=== PATIENT | female | born 1940 | race Caucasian/White ===

== ENCOUNTER → 2020-02-22 14:47 | Outpatient (CLI) | payer OTHER, SELFPAY ==
[2020-02-22 15:35] LABS: Bacteria Urine None Seen; RBC Urine None Seen (0-5/HPF); WBC Urine None Seen (0-5/HPF)
[2020-02-22 16:11] LABS: Appearance Urine UA CLEAR; Bilirubin Urine UA NEGATIVE (NEGATIVE); Color Urine UA YELLOW; Glucose Urine UA NEGATIVE (Negative); Ketones Urine UA NEGATIVE (NEGATIVE); Leukocyte Esterase Urine UA NEGATIVE (NEGATIVE); Nitrite Urine UA NEGATIVE (Negative); Occult Blood Urine UA NEGATIVE (Negative); Protein Urine UA 2+ (Negative); Urobilinogen Urine UA 0.2 E.U./dL (0.2)
[2020-02-22 16:12] LABS: Add Manual Diff / Slide Review NO; Basophils Absolute Auto 0 /uL (0-100); Basophils Percent Auto 0.6 % (0-2); Eosinophils Absolute Auto 100 /uL (0-450); Eosinophils Percent Auto 1.3 % (2-4); Hematocrit 33.4 % (36-46); Hemoglobin 11.1 g/dL (12.0-16.0); Lymphocytes Absolute Auto 1800 /uL (1100-4500); Lymphocytes Percent Auto 25.8 % (25-40); Mean Corpuscular HGB Conc 33.1 % (30-36); Mean Corpuscular Hemoglobin 30.2 PG (26-34); Mean Corpuscular Volume 91.2 fL (80-100); Monocytes Absolute Auto 600 /uL (0-900); Neutrophils Absolute Auto 4400 /uL (1500-7000); Neutrophils Percent Auto 63.3 % (50-75); Platelet Count 321 X10^3/uL (150-400); Red Blood Cell Count 3.67 X10^6/uL (4.0-5.2); Red Cell Distribution Width 15.5 % (11.6-14.8)
[2020-02-22 16:21] LABS: Hemoglobin A1C% w Est Avg Glu 5.3 % (4.0-6.0)
[2020-02-22 16:30] LABS: Culture Indicated Urine Cult Not Indicated; Urine Comments Microscopic Normal
[2020-02-22 16:39] LABS: Erythrocyte Sedimentation Rate 31 MM/HR (0-20)
[2020-02-22 16:52] LABS: Blood Urea Nitrogen 48 mg/dL (7-17); Calcium 9.9 mg/dL (8.4-10.2); Carbon Dioxide 29 mmol/L (22-32); Chloride 98 mmol/L (98-107); Estimated Glomerular Filt Rate 35.9 mL/min (>60); Glucose 112 mg/dL (80-110); HEMOLYSIS < 15 (0-50); Potassium 4.9 mmol/L (3.4-5.1); Sodium 138 mmol/L (137-145)
[2020-02-22 16:53] LABS: C-Reactive Protein Quant < 0.5 mg/dL (<1.0)
== END ==
PROVIDERS: PCP Family Medicine; Referring Provider Orthopaedic Surgery; Visit Provider Orthopaedic Surgery
DX: Z01.818 Encounter for other preprocedural examination (principal); Z01.812 Encounter for preprocedural laboratory examination; R73.9 Hyperglycemia, unspecified; N39.0 Urinary tract infection, site not specified
CPT/HCPCS: 36415; 80048; 81001; 83036; 85025; 85651; 86140; 93005; 93010

== ENCOUNTER → 2020-02-23 10:40 | Outpatient (CLI) | payer OTHER, SELFPAY ==
[2020-02-24 23:14] LABS: COVID19 Sendout Not Detected (Not Detect)
== END ==
PROVIDERS: PCP Family Medicine; Visit Provider Physician Assistant
DX: Z01.818 Encounter for other preprocedural examination (principal)
CPT/HCPCS: 87635

== ENCOUNTER 2020-02-26 15:19 | Observation (INO) | payer OTHER, SELFPAY ==
[2020-02-25] VITALS (12 sets, daily range): BP systolic 152–201; BP diastolic 63–90; PULSE 66–76; RESP 16–25; TEMP 36.4–37; O2SAT 94–99; BMI 16.4
--- NOTE | 2020-02-25 | DI.RAD.S_ITS ---
PROCEDURE: XR HIP W PEL IF DONE LT 2V INDICATIONS: TOTAL LEFT HIP TECHNIQUE: AP pelvis and lateral view of the left hip acquired. COMPARISON: None. FINDINGS: Bones: Patient is status post left hip arthroplasty, with hardware components in expected positions. The hip joint appears congruent. The visualized bony structures appear intact. Soft tissues: Overlying postoperative changes are noted. No suspicious soft tissue densities. IMPRESSION: Normal postoperative examination. Dictated by: Crow Garrett M.D. on 02/25/2020 at 16:57 Approved by: Crow aGrrett M.D. on 02/25/2020 at 16:57
--- NOTE | 2020-02-25 07:40 | DI.RAD.S_ITS ---
PROCEDURE: XR PELVIS 1-2V INDICATIONS: hip left nonunion TECHNIQUE: Intra-operative view of the pelvis and hip acquired. COMPARISON: [facility] [place], [place], XR PELVIS WITH BILATERAL LATERAL HIPS, 02/22/2020, 13:47. FINDINGS: Bones: Intraoperative devices prior to placement of arthroplasty prostheses are in expected positions. No fractures or suspicious bony lesions. Right hip arthroplasty redemonstrated. Soft tissues: Overlying surgical retractors are present, along with other intraoperative changes. IMPRESSION: Intraoperative images demonstrating placement of left hip surgical spacer devices in expected positions. Dictated by: Heri Lopez [facility] Interpreted: Randell Cain MD on 02/25/2020 at 16:53 Approved by: Randell Cain M.D. on 02/25/2020 at 17:03
[2020-02-25] MEDS: ACETAMINOPHEN 325 MG TABLET 975 MG PO (11:52)
--- NOTE | 2020-02-25 12:23 | PM.PREOP ---
Pre-operative Note COVID-19 COVID-19 status: Negative Result date/Date tested (Pos, Neg/Pending): 02/22/20 Interval Note History & Physical reviewed/Exam performed by Physician: Yes Changes to H&P: No
--- NOTE | 2020-02-25 12:23 | PM.OP.1 ---
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 She was treated at [facility] where she underwent a open reduction internal fixation with cannulated screws she went on to developed a left femoral neck nonunion and the some penetration of her screws through her acetabulum brought to the operating room for left total hip arthroplasty and removal of retained internal fixation. Surgeon: Leida Dent Registered Nurse Step Down: Johann Castro Anesthesia Type: General and Spinal Operative Notes Findings: Very soft bone, some injury to the acetabulum, adequate stability Closure Type: primary Specimen(s): other (Culture and sensitivity) Prosthetic devices, grafts, tissues, transplants, or devices: [employer] R3 50 mm, 50 x 32 mm liner, 32+ 0 head, size 12 synergy cemented standard offset, 2 screws Estimated Blood Loss (mL): 250 Blood products transfused: none Procedure in detail: The patient was seen in the pre-operative area, where the patient identified the left hip as the operative site and this was marked with my initials. The patient received pre-operative antibiotics and was taken to the operating room and placed on the operative table in the right lateral decubitus position after satisfactory anesthesia. A time analysis clerk out was performed. The left leg was prepared from the ankle to the iliac crest with ChloroPrep in the usual fashion and draped through sterile drapes. The hip was approached through an approximately 20 cm incision centered over the greater trochanter and curving gently posteriorly as it went proximally. This was carried sharply to the fascia paige, which was divided and retracted with a self retaining retractor. The trochanteric bursa was excised with care being taken to avoid the sciatic nerve, which was identified and protected throughout the case. The short external rotators were incised and the capsulomuscular flap was raised and tagged for later repair. The hip was dislocated. Dissection was carried distally to find the screw heads. Dissection was carried out down around the screw heads and the 3 screws were removed without difficulty. Small amount of bone was ultimately packed into the screw holes to avoid extravasation of cement. Next, a femoral neck osteotomy performed approximately 10 mm above the lesser trochanter, just distal to the fracture site. Retractors were placed around the femur. The canal was opened with a box cutting osteotome, followed by a T handled reamer and a lateralizing reamer. The chili pepper broach was then used, followed by sequential reaming and broaching until there was adequate stability of the broach in the femur. She had very soft bone in her femur. Retractors were placed to expose the acetabulum. The labrum and central soft tissues were removed. Reaming was performed initially going up in 2 mm increments, then 1 mm increments until good bite was obtained with an odd sized reamer. The cup 1 mm larger than the last reamer was then inserted using the appropriate anteversion guides. The acetabulum was further stabilized with a single screw. A trial neutral liner was placed. The cup appeared too vertical and it was a little difficult to reposition the femur was felt that the cup it has shifted some and I took the liner out of the cup removed the screw tamp the cup out reamed just slightly deeper and then impacted the 50 50 cup again and fixed it with 2 screws. Next the neutral trial liner was placed. The broach was placed in the canal. A trial head and neck were then placed and the hip relocated and checked for leg length and stability. An intraoperative film confirmed the component position and no evidence of fracture. The patient was stable in the position of sleep, of squatting, and could be put through a range of motion with 45 degrees internal rotation without dislocation. At 90 degrees flexion, internal rotation to 70? was possible before dislocation. The stem look a little undersized on the radiographs and it was felt that I could go up to at least a size 12 stem which was carefully placed. She had very soft proximal femoral bone I did not think additional stability would be achieved with a 13 especially as I was planning to cement the stem. This was felt to be satisfactory and the appropriate components were opened, and the trials were removed. The acetabular liner was impacted into position. A distal cement restrictor was placed. The final stem was then cemented into the prepared femoral canal. The hip was meticulously irrigated with normal saline. Finally the femoral head was impacted onto the stem. The acetabulum was cleared of all material and the hip relocated one final time. The capsulomuscular flap was then repaired to the greater trochanter though an awl hole using the tag sutures. The short external rotators were repaired with a nonabsorbable suture. A deep drain was placed and brought out anteriorly. The fascia paige was closed with Vicryl. The subcutaneous layer was closed with barbed sutures and SteriStrips. An Aquacel Ag dressing was applied and the patient was taken to recovery having tolerated the procedure well. Complications: none Post-operative Condition: stable Disposition: Acute Care Plan for aftercare: The patient will be maintained on a standard total hip replacement protocol with weight bearing as tolerated and posterior hip precautions. The patient will receive Aspirin and sequential compression devices for DVT prophylaxis. The patient will be discharged home when safe for the home environment.
[2020-02-25] MEDS: LACTATED RINGERS 1,000 ML 42 ML IV (12:24)
[2020-02-25] MEDS: VANCOMYCIN 1,000 MG/200 ML PIGGYBACK 200 MG IV (13:43)
[2020-02-25] MEDS: CEFAZOLIN 2 GM/100 ML FROZ.PIGGY IV ×2 (15:15→22:36)
--- NOTE | 2020-02-25 15:31 | SUR.OPER ---
Right Lateral on padded OR bed. Gel axillary roll. Arms secured on padded armboard with pillow supporting top arm. Padded hip positioner braces x4 - anterior and posterior chest and pelvis. Additional gel pad used anterior pelvis. Gel pad under bottom leg from knee to foot and secured with tape over sheet.
[2020-02-25] MEDS: BUPIVACAINE 0.5% W/ EPI (PF) 30 ML VIAL 20 ML INJ (15:38)
[2020-02-25] MEDS: TRANEXAMIC ACID 1,000 MG VIAL 1000 MG INJ ×2 (15:39→17:01)
[2020-02-25] MEDS: SODIUM CHLORIDE IRRIG SOLUTION 250 ML, POVIDONE-IODINE SPONGE STICKS 1 APPLIC IRR (15:40)
[2020-02-25] MEDS: BUPIVACAINE LIPOSOME 266 MG/20 ML VIAL INJ (15:40)
[2020-02-25] MEDS: EPINEPHrine 1 MG/ML IRR (15:45)
--- NOTE | 2020-02-25 17:57 | SUR.PHASEI ---
Report called to YANELIS Vuong, Stable PACU stay. Transported up to room 213 on room air.
--- NOTE | 2020-02-25 18:13 | SUR.PHASEI ---
Pt left with YANELIS Vuong in stable condition, bed low, locked and SCD's on.
[2020-02-25] MEDS: LACTATED RINGERS 1,000 ML 125 ML IV (18:41)
[2020-02-25] MEDS: OXYCODONE IR 5 MG TABLET PO ×2 (19:22→22:36)
[2020-02-25] MEDS: DOCUSATE 100 MG CAPSULE PO (20:26)
[2020-02-25] MEDS: IBUPROFEN 400 MG TABLET PO (20:26)
[2020-02-25] MEDS: ASPIRIN EC 81 MG TABLET PO (20:26)
[2020-02-25] MEDS: ACETAMINOPHEN 325 MG TABLET 650 MG PO (20:27)
[2020-02-26] VITALS (9 sets, daily range): BP systolic 128–195; BP diastolic 63–85; PULSE 66–77; RESP 16–20; TEMP 36.1–36.7; O2SAT 96–100
[2020-02-26] MEDS: IBUPROFEN 400 MG TABLET PO ×4 (00:39→17:14)
--- NOTE | 2020-02-26 00:59 | PC.NURSE ---
Patient is alert and oriented. Breath sounds CTA with RA sat of 96%. HRR. Denies nausea. BT present but denies flatus. Has been voiding without dysuria, frequency or urgency. Able to move self in bed; prefers to sleep on back. Gets up to [place] with walker and 1 assist. Dressing to left hip is CDI. Bruising noted on bilateral UE. Wearing bilateral calf SCD's. CMS intact although PP weak bilaterally. Fall risk score is moderate; bed alarm is activated. States pain is currently 6/10 but tolerable; medicated with scheduled Ibuprofen.
[2020-02-26] MEDS: LACTATED RINGERS 1,000 ML 125 ML IV (03:19)
[2020-02-26 06:19] LABS: Hematocrit 27.5 % (36-46); Hemoglobin 9.1 g/dL (12.0-16.0)
[2020-02-26] MEDS: CEFAZOLIN 2 GM/100 ML FROZ.PIGGY IV (06:24)
[2020-02-26] MEDS: PANTOPRAZOLE 20 MG TABLET PO (06:24)
[2020-02-26] MEDS: ACETAMINOPHEN 325 MG TABLET 650 MG PO ×2 (09:05→15:20)
[2020-02-26] MEDS: AMLODIPINE 5 MG TABLET 10 MG PO (09:05)
[2020-02-26] MEDS: hydroCHLOROthiazide 25 MG TABLET 50 MG PO (09:06)
[2020-02-26] MEDS: ASPIRIN EC 81 MG TABLET PO ×2 (09:06→20:33)
[2020-02-26] MEDS: DOCUSATE 100 MG CAPSULE PO ×2 (09:06→20:33)
[2020-02-26] MEDS: METOPROLOL ER 50 MG TABLET PO (09:07)
[2020-02-26] MEDS: ROSUVASTATIN 10 MG TABLET 5 MG PO (09:07)
[2020-02-26] MEDS: OXYCODONE IR 5 MG TABLET PO (09:12)
--- NOTE | 2020-02-26 09:17 | PC.NURSE ---
Addendum entered by Shellie Rodriguez R.N. 02/26/20 15:44: Spoke with Dr. Dent regarding patient status. This RN reported patient remains HTN and was unable to do OOB exercises with PT d/t nausea. told this RN to avoid giving pt oxy to keep patient from becoming ill. Patient receptive to this. Addendum entered by Shellie Rodriguez R.N. 02/26/20 11:37: Patient up to chair with PT for lunch. Denies pain at this time. Call light in reach, patient denies further needs at this time. Addendum entered by Shellie Rodriguez R.N. 02/26/20 10:47: Patient HOB elevated, patient tolerated ambulation to bathroom. Addendum entered by Shellie Rodriguez R.N. 02/26/20 09:41: Dr Dent notified regarding pts HTN, patient repositioned to sit up before working with PT this morning per Drs instructions. Will continue to monitor. Original Note: patient resting in bed, A/O x3, c/o hip pain 6-7/10, administered PRN oxy 5mg. Left hip dsg is CDI, pedal pulses intact, patient is still hypertensive, denies chest pain, dizziness, headache. Saline locked at this time. Lung sounds clear, patient deneis SOB. Patient is taking fluids and eating PO. SCD's on bilaterally. Call light in reach.
--- NOTE | 2020-02-26 11:25 | PT.IIE ---
Current Diagnoses Bilateral primary osteoarthritis of hip (02/25/20) Fracture of unspecified part of neck of left femur, subsequent encounter for closed fracture with nonunion (02/25/20) Surgery Performed Operation Date: 02/25/20 13:15 Actual Procedures p Total Hip Arthroplasty/Removal of internal fixation(Left) - Leida Dent MD Physical Therapy Inpatient Evaluation/Re-Eval M1 PT/OT-IP Prior Functional Status Start: 02/26/20 09:56 Freq: NEEDED Status: Active Protocol: Document 02/26/20 11:06 AW (Rec: 02/26/20 11:25 AW [id number]) Medical Review Prior Functional Status Medical History Reviewed Yes Communication WNL Mobility and Gait Pt sustained femoral neck fracture in September 2019 which was managed operatively with ORIF. Pt discharged from that admission to [facility] for SNF rehab and left for home on 11/09/19. At that time, she was ambulating with SPC. She experienced increasing pain over the next few months and was found to have nonunion of her fracture. She has been using FWW nearly 100% of the time for at least the past month. Prior to her original injury, she was very active, walking up to 5 miles daily. Activities of Daily Living and IADL's Independent at recent baseline except for dressing lower body which her helps with. also assists with showers. Social History Household Members spouse Living Arrangements House Number of Floors (Floors) One Floor Number of Stairs To Enter/Railing? Ramped entry. Home is accessible by design. Home Environment Standard Height Toilet,Walk in Shower,Ramp Home Equipment Front Wheel Walker,Straight Cane,Manual Wheelchair,Raised Toilet Seat w/Armrests,Shower Seat with Backrest,Long Handled Shoe Horn,Clinical Athletic Instructor,Sock Aid,Grab Bars Near Toilet, Grab Bars In Shower Employment Status Retired Additional Social History Comment Pt lives with her spouse, Melvin, who is available and able to provide assist. M2 PT-IP Current Condition Start: 02/26/20 09:56 Freq: NEEDED Status: Active Protocol: Document 02/26/20 11:06 AW (Rec: 02/26/20 11:25 AW [id number]) Physical Therapy Current Condition Current Condition Evaluation Date 02/26/20 Treatment Diagnosis s/p L BIA with posterior approach; difficulty in walking Onset Date 02/25/20 Precautions Posterior Hip Precautions No Hip Flexion > 90 degrees,No Hip Internal Rotation,No Hip Adduction Other Precautions hypertensive on morning of evaluation Weight Bearing Status Weight Bearing Status Weight Bear as Tolerated M3 PT-IP Subjective Start: 02/26/20 09:56 Freq: NEEDED Status: Active Protocol: Document 02/26/20 11:06 AW (Rec: 02/26/20 11:25 AW [id number]) Subjective Physical Therapy Visit Type Type Initial Evaluation Visit Start Time 10:16 Visit Stop Time 10:52 Total Visit Minutes 36 Physical Therapy Visit Comments Patient Comments Pt willing to participate with PT Patient Goals Pt hopes to return home at discharge with spouse support Therapy Pain Assessment Pain When Pain Assessed During Mobility Pain Present Pain Present Pain Reported Location Left Hip Intensity 5 Scale Used Numeric (1 - 10) Pain Management Techniques Timing of Activity with Medications M4 PT-IP Mobility and Gait Start: 02/26/20 09:56 Freq: NEEDED Status: Active Protocol: Document 02/26/20 11:06 AW (Rec: 02/26/20 11:25 AW [id number]) PT-Bed Mobility Assessment Supine to Sit Supine to Sit Standby Assistance,Head of Bed Elevated Scooting Scooting to Edge of Bed Standby Assistance PT-Transfer Assessment Sit to and From Stand Sit to and from Stand Contact Guard Assistance,1 Person Assistance,Use of Upper Extremities Equipment Transfer Assistive Device Gait Belt,Front Wheeled Walker Orthotic/Prosthetic Devices or Brace: No Transfers Transfer Destination Chair Transfer Technique pt ambulated with FWW Transfer Ability Level of Assist Contact Guard Assistance,1 Person Assistance,Use of Upper Extremities Comments Mobility Comments Pt sitting up in bed upon PT arrival. After review of posterior precautions, pt completed supine to sitting EOB SBA. BP sitting EOB was 199/77. Pt then stood using FWW CGA and transferred to the bedside chair with verbal cues for maintaining posterior precautions and CGA with FWW. BP sitting in the chair was 144/88 initially and 164/84 after two minutes rest. Pt denied symptoms. She then stood from the chair CGA and ambulated ~75 feet with FWW CGA before returning to the chair where she was positioned with call light and all needs within reach. After activity, BP was 155/82. RN notified of pt status. Gait Assessment Gait Gait Assistance Required: Contact Guard Assist Distance (Feet) 75 Able to Maintain Weight Bearing Status Yes During Gait Assistive Devices Assistive Device Gait Belt,Front Wheeled Walker Orthotic/Prosthetic Devices or Brace: No Gait Deviations General Gait Pattern Antalgic,Decreased Stride Length,Decreased Feet Clearance,Flexed Trunk,Step-to Gait Factors Limiting Gait Function Factors Limiting Gait Function Decreased Activity Tolerance, Decreased Strength,Limited Range of Motion,Pain,Poor Balance Comments Gait Comments Pt ambulated with FWW CGA, requiring verbal cues for small steps in turns to avoid internal rotation of the operative hip. Stair Climbing Assessment Comments Stair Climbing Comments Not assessed. No stairs at home PT-Balance Assessment Sitting Balance and Reactions Static Sitting Balance Ability Normal Dynamic Sitting Balance Ability Normal Standing Balance and Reactions Static Standing Balance Ability Good Dynamic Standing Balance Ability Good Device Used FWW M5 PT-IP Objective Assessments Start: 02/26/20 09:56 Freq: NEEDED Status: Active Protocol: Document 02/26/20 11:06 AW (Rec: 02/26/20 11:25 AW [id number]) Orientation Orientation/Cognition Level of Alertness Alert Orientation Name,Day of Week,Place, Situation Language Function Ability No Deficits Noted Safety Awareness Understands Safety Issues Memory Description No Deficits Noted Gross Range of Motion Lower Extremity ROM Assessment Left Impaired Strength Lower Extremity Strength Assessment Left Impaired Comments Strength Comments RLE grossly 4+/5 Coordination Assessment Gross Coordination Gross Coordination WNL Sensation Assessment Sensation Gross Sensation WNL Muscle Tone Muscle Tone WNL Yes M6 PT-IP Treatment Start: 02/26/20 09:56 Freq: NEEDED Status: Active Protocol: Document 02/26/20 11:06 AW (Rec: 02/26/20 11:25 AW [id number]) Physical Therapy Treatment Exercises Exercises Ankle Pumps,Gluteal Sets,Heel Slides Education Education Provided Precautions,Weight Bearing Status,Post-Op Packet,Safety Other Treatments Other Treatment Performed Provided education on role of PT, plan of care, weightbearing status, posterior hip precautions, and safety with FWW. M7 PT-IP Assessment and Plan Start: 02/26/20 09:56 Freq: NEEDED Status: Active Protocol: Document 02/26/20 11:06 AW (Rec: 02/26/20 11:25 AW [id number]) PT Summary Assessment and Plan Potential Rehabilitation Potential Good Status of Condition at Evaluation Stable Summary Impairments Pain,ROM,Strength,Balance,Bed Mobility,Transfers,Gait, Activity Tolerance Assessment Summary Ashleigh is an 79 yo woman seen for PT evaluation on POD1 following L BIA subsequent to femur fracture treated with ORIF in September and nonunion. After her initial surgery, pt went to SNF rehab and was ambulating with SPC or hurrycane when she went home ib 11/09/19. With worsening pain over the last month, pt returned to director multimedia use of FWW. On evaluation, pt required CGA with most mobility using FWW and verbal cues to maintain posterior hip precautions. In spite of initial BP of 199/77, pressure remained stable 140's to 160' s throughout treatment. She will benefit from continued acute PT but will likely be safe to discharge home with spouse support and outpatient PT once medically cleared. Goals Bed Mobility Goal Independent Transfer Goal Independent,Front Wheeled Walker Gait Goal Independent,Standby Assistance ,Front Wheel Walker Gait Distance 250 Days to Meet Goals 3 Frequency of Treatment Frequency Of Treatment Twice a Day Treatment Plan Physical Therapy Treatment Plan Bed Mobility Training,Transfer Training,Gait Training, Therapeutic Exercise,Balance Retraining,Post Op Education, Discharge Planning,Hot or Cold Pack Other Recommendations and Next Treatment review ther ex, progress gait Focus distance, reinforce posterior precautions Recommendations To Nursing Amount of Assist Needed Standby Assistance,1 Person Assist Discharge Recommendations PT Discharge Recommendations Home with Assistance, Outpatient PT Transportation Needs at Discharge Private Vehicle
--- NOTE | 2020-02-26 11:49 | CM.DANOTE ---
DCP: Case received, EMR reviewed and met with patient. Introduced self and role. Was able to meet with patient to obtain information regarding her baseline activity status prior to surgery, as well as health and living situation. DCP assessment completed with information currently available. Patient is an 79 year old female who admitted yesterday morning to the care of the orthopedic team. PCP: Dr. Colunga. Payer: confirmed: [facility]. Patient came to the hospital for a surgical procedure. She had left total hip arthroplasty. Patient had sustained a fall back in September, and had a femoral neck fractures. Patient confirmed that she had surgery at [facility]. Patient indicated that her hardware had become loose, so she was having surgery to repair this. Patient has history of osteoarthritis of her hip. Met with patient in her room. Pleasant, alert and oriented. She was sitting up in her chair next to her bed. She confirmed that she resides in [place] with her spouse, Melvin. She confirmed that she lives in a one level home. She stated that she is independent at baseline, but her does help out with meals and chores. P: DCP to continue to follow. She has already worked with P.T, who has encouraged outpatient P.T, and home with assist. Etta Norwood RN/Dairy Supplies Sales Representative
--- NOTE | 2020-02-26 14:40 | PT.IPTN ---
Current Diagnoses Bilateral primary osteoarthritis of hip (02/25/20) Fracture of unspecified part of neck of left femur, subsequent encounter for closed fracture with nonunion (02/25/20) Surgery Performed Operation Date: 02/25/20 13:15 Actual Procedures p Total Hip Arthroplasty/Removal of internal fixation(Left) - Leida Dent MD Physical Therapy Treatment Note M2 PT-IP Current Condition Start: 02/26/20 09:56 Freq: NEEDED Status: Active Protocol: Document 02/26/20 11:06 AW (Rec: 02/26/20 11:25 AW [id number]) Physical Therapy Current Condition Current Condition Evaluation Date 02/26/20 Treatment Diagnosis s/p L BIA with posterior approach; difficulty in walking Onset Date 02/25/20 Precautions Posterior Hip Precautions No Hip Flexion > 90 degrees,No Hip Internal Rotation,No Hip Adduction Other Precautions hypertensive on morning of evaluation Weight Bearing Status Weight Bearing Status Weight Bear as Tolerated M3 PT-IP Subjective Start: 02/26/20 09:56 Freq: NEEDED Status: Active Protocol: Document 02/26/20 14:23 CLB (Rec: 02/26/20 15:10 CLB [id number]) Subjective Physical Therapy Visit Type Type Treatment Note Visit Start Time 14:23 Visit Stop Time 14:40 Total Visit Minutes 17 Number of CUSTOMER COUNTER ASSOCIATE Visits 1 Physical Therapy Visit Comments Patient Comments Pt states she is nauseous and would not like to get up. Pt was agreeable to do therapeutic exercises. Therapy Pain Assessment Pain When Pain Assessed During Exercise Pain Present Pain Present Pain Reported Location Left Hip Scale Used did not state Pain Management Techniques Modification of Treatment, Timing of Activity with Medications M4 PT-IP Mobility and Gait Start: 02/26/20 09:56 Freq: NEEDED Status: Active Protocol: Document 02/26/20 11:06 AW (Rec: 02/26/20 11:25 AW [id number]) PT-Bed Mobility Assessment Supine to Sit Supine to Sit Standby Assistance,Head of Bed Elevated Scooting Scooting to Edge of Bed Standby Assistance PT-Transfer Assessment Sit to and From Stand Sit to and from Stand Contact Guard Assistance,1 Person Assistance,Use of Upper Extremities Equipment Transfer Assistive Device Gait Belt,Front Wheeled Walker Orthotic/Prosthetic Devices or Brace: No Transfers Transfer Destination Chair Transfer Technique pt ambulated with FWW Transfer Ability Level of Assist Contact Guard Assistance,1 Person Assistance,Use of Upper Extremities Comments Mobility Comments Pt sitting up in bed upon PT arrival. After review of posterior precautions, pt completed supine to sitting EOB SBA. BP sitting EOB was 199/77. Pt then stood using FWW CGA and transferred to the bedside chair with verbal cues for maintaining posterior precautions and CGA with FWW. BP sitting in the chair was 144/88 initially and 164/84 after two minutes rest. Pt denied symptoms. She then stood from the chair CGA and ambulated ~75 feet with FWW CGA before returning to the chair where she was positioned with call light and all needs within reach. After activity, BP was 155/82. RN notified of pt status. Gait Assessment Gait Gait Assistance Required: Contact Guard Assist Distance (Feet) 75 Able to Maintain Weight Bearing Status Yes During Gait Assistive Devices Assistive Device Gait Belt,Front Wheeled Walker Orthotic/Prosthetic Devices or Brace: No Gait Deviations General Gait Pattern Antalgic,Decreased Stride Length,Decreased Feet Clearance,Flexed Trunk,Step-to Gait Factors Limiting Gait Function Factors Limiting Gait Function Decreased Activity Tolerance, Decreased Strength,Limited Range of Motion,Pain,Poor Balance Comments Gait Comments Pt ambulated with FWW CGA, requiring verbal cues for small steps in turns to avoid internal rotation of the operative hip. Stair Climbing Assessment Comments Stair Climbing Comments Not assessed. No stairs at home PT-Balance Assessment Sitting Balance and Reactions Static Sitting Balance Ability Normal Dynamic Sitting Balance Ability Normal Standing Balance and Reactions Static Standing Balance Ability Good Dynamic Standing Balance Ability Good Device Used FWW M5 PT-IP Objective Assessments Start: 02/26/20 09:56 Freq: NEEDED Status: Active Protocol: Document 02/26/20 11:06 AW (Rec: 02/26/20 11:25 AW [id number]) Orientation Orientation/Cognition Level of Alertness Alert Orientation Name,Day of Week,Place, Situation Language Function Ability No Deficits Noted Safety Awareness Understands Safety Issues Memory Description No Deficits Noted Gross Range of Motion Lower Extremity ROM Assessment Left Impaired Strength Lower Extremity Strength Assessment Left Impaired Comments Strength Comments RLE grossly 4+/5 Coordination Assessment Gross Coordination Gross Coordination WNL Sensation Assessment Sensation Gross Sensation WNL Muscle Tone Muscle Tone WNL Yes M6 PT-IP Treatment Start: 02/26/20 09:56 Freq: NEEDED Status: Active Protocol: Document 02/26/20 14:23 CLB (Rec: 02/26/20 15:10 CLB [id number]) Physical Therapy Treatment Exercises Exercises Ankle Pumps,Gluteal Sets,Quad Sets,Heel Slides,Supine Hip Abduction Education Education Provided Precautions,Weight Bearing Status,Post-Op Packet,Safety Other Treatments Other Treatment Performed Pt recalled 1/3 post hip precaution (no internal rotation. Provided pt education on posterior hip precautions. M7 PT-IP Assessment and Plan Start: 02/26/20 09:56 Freq: NEEDED Status: Active Protocol: Document 02/26/20 14:23 CLB (Rec: 02/26/20 15:10 CLB [id number]) PT Summary Assessment and Plan Potential Rehabilitation Potential Good Status of Condition at Evaluation Stable Summary Impairments Pain,ROM,Strength,Balance,Bed Mobility,Transfers,Gait, Activity Tolerance Assessment Summary Pt refused to get out of bed due to nausea but was agreeable to bed ther ex. Pt could not recall all post hip precautions and pt was educated on precautions. Pt was able to perform active heel slide and hip abd. Pt left in bed with alarm and SCD 's on, informed RN of pt nausea. Goals Bed Mobility Goal Independent Transfer Goal Independent,Front Wheeled Walker Gait Goal Independent,Standby Assistance ,Front Wheel Walker Gait Distance 250 Days to Meet Goals 3 Frequency of Treatment Frequency Of Treatment Twice a Day Treatment Plan Physical Therapy Treatment Plan Bed Mobility Training,Transfer Training,Gait Training, Therapeutic Exercise,Balance Retraining,Post Op Education, Discharge Planning,Hot or Cold Pack Other Recommendations and Next Treatment review ther ex, progress gait Focus distance, reinforce posterior precautions Recommendations To Nursing Amount of Assist Needed Standby Assistance,1 Person Assist Discharge Recommendations PT Discharge Recommendations Home with Assistance, Outpatient PT Transportation Needs at Discharge Private Vehicle
--- NOTE | 2020-02-26 18:32 | P.DS_ITS ---
History of Present Illness History of Present Illness Date Patient Seen: 02/26/20 Time Patient Seen: 18:32 Chief complaint: *[id number] Narrative: Charlene notes that she is doing reasonably well. She got up with physical therapy today and had a good session in the morning. She did have some postoperative nausea in the afternoon and had a little difficulty getting a round. She has steps at home and so her discharge was held due to postoperative issues including nausea. The plan is for discharge to home in the morning on 02/27/2020. Discharge Providers Provider Date of admission: 02/26/20 15:19 Discharge Date: 02/27/20 Primary care physician: Jens Colunga DO Consults: 02/25/20 07:38 Consult to Anesthesiology Routine Comment: Consulting Provider: Anesthesiologist Reason for consultation: Regional block for post operative pain control 02/25/20 18:05 Consult to Discharge Planning Routine Comment: Consult to Physical Therapy Evaluate & Treat Comment: Physician Instructions: post op BIA protocol Consult to Respiratory Therapy Evaluate & Treat Comment: Physician Instructions: Evaluate and treat 02/25/20 18:19 Consult to Dietitian, Adult Routine Comment: Reason For Exam: unintentional weightloss Discharge provider: Leida Dent MD Summary Hospital Course Discharge Diagnosis: Left femoral neck nonunion, posttraumatic arthritis left acetabulum, retained internal fixation left hip, hypertension Hospital Course: Patient taken the operating room she underwent a removal of hardware left hip and a left total hip arthroplasty. She tolerated the procedure well and was transferred to the [facility]. She was carefully monitored as she had some component of significant hypertension preoperatively. She was trained with physical therapy and did have some issues associated with postoperative nausea. Her nausea resolved and she was discharged to home with her on 02/27/2020. Status at Discharge Cognitive/behavioral status at discharge: oriented Functional status at discharge: uses cane/walker Overall status at discharge: patient is back to baseline Time Spent with Patient Time spent: Less than 30 minutes Exam Vital Signs (past 8 hours): - 02/26/20 11:30 02/26/20 12:29 02/26/20 15:35 Temperature 98.1 F 97.6 F Pulse Rate 72 69 Respiratory Rate 20 18 Blood Pressure 164/73 H 164/73 H 157/66 H Pulse Oximetry 99 98 Oxygen Delivery Method Room Air Oxygen Flow Rate 0 Narrative Exam Narrative: She is resting comfortably in bed she is alert she is oriented conversant asking appropriate questions HEENT is benign of calfs are soft bilaterally she is neurologically intact distally her dressing is dry on the left hip and she has really minimal pain with range of motion in her left hip Objective Labs Result Diagrams: 02/26/20 05:34 Labs: Laboratory Results - last 24 hr 02/26/20 05:34 Hgb 9.1 L Hct 27.5 L Discharge Plan Discharge Plan Patient Disposition: Home Discharge comment: Change left hip dressing to new Aquacel prior to discharge. Discharge to home on 02/27/2020 after Morning physical therapy session. Discharge orders & Medications Prescriptions: New aspirin 81 mg Tablet,Delayed Release (Dr/Ec) 81 mg PO BID 45 Days Qty: 90 RF: 0 oxycodone 5 mg capsule 5 mg PO Q8H PRN (Reason: pain) Qty: 30 RF: 0 Continued hydrochlorothiazide 50 mg Tablet 50 mg PO DAILY RF: 0 aspirin 81 mg Tablet,Delayed Release (Dr/Ec) 81 mg PO DAILY RF: 0 amlodipine 10 mg Tablet 10 mg PO DAILY RF: 0 omeprazole 20 mg Capsule,Delayed Release(Dr/Ec) 20 mg PO DAILY RF: 0 rosuvastatin 5 mg Tablet 5 mg PO DAILY RF: 0 metoprolol succinate 50 mg Capsule,Sprinkle,Er 24hr 50 mg PO DAILY RF: 0 Follow up/Referrals: Jens Colunga DO [Primary Care Provider] - Leida Dent MD [Physician] - Diet/Activity/Treatments Diet: Diet as Tolerated Activity: Walk multiple times a day, okay to put all your weight on the leg Cold/Heat Therapy: Ice your hip multiple times a day Other treatments: Start physical therapy in 7-10 days. Skin/Wound/Dressing Care Report to your healthcare provider any signs of infection, such as:: chills, fever, night sweats, increased pain, unusual drainage and unusual redness Dressing: Keep dressing on. Okay to shower Visit Report/Discharge Packet Instructions: DI for Hip Replacement, DI for Prescription Opioid Use Stand Alone Forms: Surgery Discharge Discharge Data Primary Care Provider: Jens Colunga Attending Provider: Leida Dent Admit Date/Time: 02/26/20 15:19
--- NOTE | 2020-02-26 22:37 | PC.NURSE ---
Addendum entered by Lorena Beaver R.N. 02/26/20 23:16: during shift report, pt's IV was found on her bedside table. Original Note: pt rates her pain 6/10, tolerable. pt declined tylenol and ibuprofen. SBA w/walker. Pt will be discharge tomorrow after PT. scripts are in her folder. pt denied any chest pain or sob. L.hip dressing cdi. voiding without difficulty. scds. call light in reach bed alarm active.
--- NOTE | 2020-02-27 00:41 | PC.NURSE ---
Patient is alert and oriented but rambles in conversation. Breath sounds CTA with RA sat of 97%. HRR. BP continuing to trend high at 157/85 (per evening RN, MD is aware). Denies nausea. BT present and is passing flatus but has not had a BM since 02/22. Getting up to BSC/bathroom with walker and 1 assist and voiding without dysuria, frequency or urgency. Is able to turn herself in bed. Dressing to left hip is CDI. CMS intact except for weak pedal pulses bilaterally. Refusing to wear SCD's despite education as to purpose so reminded to ankle wave. States pain comes and goes and when made to give a number states well, lets say 6 but declines offer of any pain medication and FLACC is 0. Fall risk score is moderate; bed alarm is activated.
[2020-02-27 03:52] VITALS: BP 150/68; PULSE 72; RESP 18; TEMP 36.2; O2SAT 97
[2020-02-27] MEDS: PANTOPRAZOLE 20 MG TABLET PO (06:00)
[2020-02-27 08:00] VITALS: BP 161/69; PULSE 68; RESP 18; TEMP 36.7; O2SAT 98
[2020-02-27] MEDS: ONDANSETRON 4 MG ODT PO (08:30)
[2020-02-27] MEDS: ACETAMINOPHEN 325 MG TABLET 650 MG PO (09:55)
[2020-02-27] MEDS: METOPROLOL ER 50 MG TABLET PO (09:57)
[2020-02-27] MEDS: hydroCHLOROthiazide 25 MG TABLET 50 MG PO (10:07)
[2020-02-27] MEDS: ASPIRIN EC 81 MG TABLET PO (10:08)
[2020-02-27] MEDS: AMLODIPINE 5 MG TABLET 10 MG PO (10:08)
[2020-02-27] MEDS: DOCUSATE 100 MG CAPSULE PO (10:08)
[2020-02-27] MEDS: SODIUM CHLORIDE 0.9% FLUSH 10 ML IV (10:09)
--- NOTE | 2020-02-27 10:56 | DIET.PN ---
Dietary Progress Note Assessment: 79y F admitted c Nonunion left femoral neck fracture with acetabular injury posttraumatic arthritis for Left total hip arthroplasty, removal internal fixation c Dr. Dent referred to nutrition for unintended wt loss. Pt reports weight loss related to sitting around for 3mo and was sitting up in chair with her partner during interview. Pt's UBW is 105# and current weight is 87#. Pt plans to increase weight by 15# in next few months. We discussed focusing on protein and healthy fat intake when considering added calories for weight gain. Pt does not prefer meat but does consume fish, dairy, and eggs. Pt has been drinking Boost and will continue on d/c. Pt was interested in Tomy so provided sample as well as instructions for use. Pt endorses some nausea but doesn't feel it is unmanageable and does not think she will need Zofran. Encouraged pt to fill the Rx in case she gets nausea to avoid missed meals. Pt's granddaughter is a dietitian and is available for ongoing nutrition advice related to healing and healthy weight gain. HT: 154.9cm WT: 39.4kg UBW: 47.7kg BMI: 16.4 Labs:hgb 9.1 L Interventions: 1. Recc ONS Ensure Enlive or equivalent daily at home to support PRO/kcal needs until attains desired wt. Diet Order: general EER: 1500kcal, 60g PRO
--- NOTE | 2020-02-27 11:35 | PT.IPTN ---
Current Diagnoses Bilateral primary osteoarthritis of hip (02/26/20) Fracture of unspecified part of neck of left femur, subsequent encounter for closed fracture with nonunion (02/26/20) Surgery Performed Operation Date: 02/25/20 13:15 Actual Procedures p Total Hip Arthroplasty/Removal of internal fixation(Left) - Leida Dent MD Physical Therapy Treatment Note M2 PT-IP Current Condition Start: 02/26/20 09:56 Freq: NEEDED Status: Discharge Protocol: Document 02/26/20 11:06 AW (Rec: 02/26/20 11:25 AW [id number]) Physical Therapy Current Condition Current Condition Evaluation Date 02/26/20 Treatment Diagnosis s/p L BIA with posterior approach; difficulty in walking Onset Date 02/25/20 Precautions Posterior Hip Precautions No Hip Flexion > 90 degrees,No Hip Internal Rotation,No Hip Adduction Other Precautions hypertensive on morning of evaluation Weight Bearing Status Weight Bearing Status Weight Bear as Tolerated M3 PT-IP Subjective Start: 02/26/20 09:56 Freq: NEEDED Status: Discharge Protocol: Document 02/27/20 11:03 SP (Rec: 02/27/20 13:28 SP [id number]) Subjective Physical Therapy Visit Type Type Treatment Note Visit Start Time 11:03 Visit Stop Time 11:35 Total Visit Minutes 32 Notes completed caregiver training during tx. Number of ARCHITECT INTERN Visits 2 Physical Therapy Visit Comments Patient Comments Pt agreeable to working with therapy. Patient Goals Pt hopes to return home at discharge with spouse support Therapy Pain Assessment Pain When Pain Assessed During Mobility Pain Present Pain Present Pain Reported Location Left Hip Intensity 7 Scale Used Numeric (1 - 10) Description Aching,Spasm,Throbbing Pain Management Techniques Modification of Treatment,Re- positioning,Timing of Activity with Medications M4 PT-IP Mobility and Gait Start: 02/26/20 09:56 Freq: NEEDED Status: Discharge Protocol: Document 02/27/20 11:03 SP (Rec: 02/27/20 13:28 SP [id number]) PT-Bed Mobility Assessment Supine to Sit Supine to Sit Standby Assistance Sit to Supine Sit to Supine Standby Assistance Scooting Scooting to Edge of Bed Standby Assistance PT-Transfer Assessment Sit to and From Stand Sit to and from Stand Contact Guard Assistance,1 Person Assistance,Use of Upper Extremities Equipment Transfer Assistive Device Gait Belt,Front Wheeled Walker Orthotic/Prosthetic Devices or Brace: No Transfers Transfer Destination Bed,Chair Transfer Technique pt ambulated using FWW Transfer Ability Level of Assist Contact Guard Assistance,1 Person Assistance,Use of Upper Extremities Comments Mobility Comments Pt was seated in chair when arrived. attended tx to complete caregiver training giving support when needed throughout treatment. donned gait belt on patient pre mobility for safety. Sit to stand CGA with therapist cuing for proper hand placement push up from chair arms, step pivot using FWW CGA chair to L side of bed and cued for reaching back prior to sit for safety close to head of bed. Sitting <>supine SBA. Pt was able to ambulate further into hallway approx 45 ft using FWW CGA before reported feeling lightheaded so returned to R side of bed to sit for safety. Pt was stable on feet not requiring more than CGA during gait. ARCHITECT INTERN assessed vitals in sitting at EOB: 102/48 SaO2 100% on room air and HR 67 bpm, elevated to 150/67 with HR 65 bpm within 2 min, educated patient on slow pursed lip breathing to assist self recovery, FWW positioned in front of patient for patient safety support with stable sitting balance and standby for safety . Pt requested wanting to sit in chair, sit to stand ambulated R side of bed to chair on L CGA provided by and he provided cuing for L knee flexion and heel toe gait to improve normalizing gait, step pivot turn and backing up to chair and reaching back for slow descent in to chair. Pt had call light and all needs in reach before left. in room. ARCHITECT INTERN discussed with patient and maybe putting chairs outside from car to inside for safety getting into the house and sit if needed with verbal confirmation. Pt feels ok short distances. ARCHITECT INTERN discussed with nurse patient's response to treatment and light headedness during gait but recovered in sitting within 2 min, patient and felt confident during tx that will be ok entering home. ARCHITECT INTERN still has weakness requiring FWW and CGA provided by . Therapy recommending sarah is able to return home with spouse for assistance when medically stable, has her own FWW and recommending outpatient therapy to improve LE strength, balance and endurance for working toward functional independence. Gait Assessment Gait Gait Assistance Required: Contact Guard Assist Distance (Feet) 90 Able to Maintain Weight Bearing Status Yes During Gait Assistive Devices Assistive Device Gait Belt,Front Wheeled Walker Orthotic/Prosthetic Devices or Brace: No Gait Deviations General Gait Pattern Antalgic,Decreased Stride Length,Decreased Feet Clearance,Flexed Trunk,Step-to Gait Factors Limiting Gait Function Factors Limiting Gait Function Decreased Activity Tolerance, Decreased Strength,Limited Range of Motion,Pain,Poor Balance Comments Gait Comments Pt ambulated with fWW CGA, requiring cuing for L knee flexion, heel toe and longer stride gait and small steps during turns to avoid internal rotation. Pt had increased lightheadedness during gait, was able to provide CGA support at gait belt and cuing as needed with good safety demonstrated. Pt's BP was low when assessed post gait and recovered within 2 min seated rest at EOB and felt fine when walked to chair , see mobility comments for vitals taken. Stair Climbing Assessment Comments Stair Climbing Comments Not assessed. No stairs at home PT-Balance Assessment Sitting Balance and Reactions Static Sitting Balance Ability Normal Dynamic Sitting Balance Ability Normal Standing Balance and Reactions Static Standing Balance Ability Good Dynamic Standing Balance Ability Good Device Used FWW M5 PT-IP Objective Assessments Start: 02/26/20 09:56 Freq: NEEDED Status: Discharge Protocol: Document 02/26/20 11:06 AW (Rec: 02/26/20 11:25 AW [id number]) Orientation Orientation/Cognition Level of Alertness Alert Orientation Name,Day of Week,Place, Situation Language Function Ability No Deficits Noted Safety Awareness Understands Safety Issues Memory Description No Deficits Noted Gross Range of Motion Lower Extremity ROM Assessment Left Impaired Strength Lower Extremity Strength Assessment Left Impaired Comments Strength Comments RLE grossly 4+/5 Coordination Assessment Gross Coordination Gross Coordination WNL Sensation Assessment Sensation Gross Sensation WNL Muscle Tone Muscle Tone WNL Yes M6 PT-IP Treatment Start: 02/26/20 09:56 Freq: NEEDED Status: Discharge Protocol: Document 02/27/20 11:03 SP (Rec: 02/27/20 13:28 SP [id number]) Physical Therapy Treatment Exercises Exercises Ankle Pumps,Seated Knee Flexion/Extension Education Education Provided Precautions,Safety Other Treatments Other Treatment Performed Pt recalled 2/3 posterior hip precautions (no IR stated), provided cuing and further education for awareness and safety throughout tx. ARCHITECT INTERN discussed supine LE ex can do when returned to room seated in chair but was not demonstrated : ankle pumps, heel slides, glut and quad sets, hip abd with verbal understanding. M7 PT-IP Assessment and Plan Start: 02/26/20 09:56 Freq: NEEDED Status: Discharge Protocol: Document 02/27/20 11:03 SP (Rec: 02/27/20 13:28 SP [id number]) PT Summary Assessment and Plan Potential Rehabilitation Potential Good Status of Condition at Evaluation Stable Summary Impairments Pain,ROM,Strength,Balance,Bed Mobility,Transfers,Gait, Activity Tolerance Assessment Summary See mobility comments. Goals Bed Mobility Goal Independent Transfer Goal Independent,Front Wheeled Walker Gait Goal Independent,Standby Assistance ,Front Wheel Walker Gait Distance 250 Days to Meet Goals 3 Frequency of Treatment Frequency Of Treatment Twice a Day Treatment Plan Physical Therapy Treatment Plan Bed Mobility Training,Transfer Training,Gait Training, Therapeutic Exercise,Balance Retraining,Post Op Education, Discharge Planning,Hot or Cold Pack Other Recommendations and Next Treatment review ther ex, progress gait Focus distance, reinforce posterior precautions Recommendations To Nursing Amount of Assist Needed Standby Assistance,1 Person Assist Discharge Recommendations PT Discharge Recommendations Home with Assistance, Outpatient PT Transportation Needs at Discharge Private Vehicle
--- NOTE | 2020-02-27 12:35 | PC.NURSE ---
Discharge: Pt feels ready to d/c home. PT here and they have given their instructions. MD here this am and he reviewed instructions. Understands her total hip precautions. was sl dizzy when up with PT, BP was 100's systolic. Pt sat down to rest and dizziness was gone in a minute. Pt did have some sl nausea this am and zofran given, same was effective. Didn't eat bkft but did take some ensure. Pt would like some zofran for when she is at home. MD office called and they will send in a script to [facility] [place]. Pt given her other scripts. Reviewed discharge packet and teaching. There was concern about her hip dressing because after her last surgery the dressing came off. Wound instructions given. Dressing is c/d/i at this time. If it does fall off or get saturated she is to call md office and they will change dressing for her. Questions answered. Pt has only taken acetaminophen for pain. It has been effective. Pt has no concerns and was d/c home via auto with family.
== END 2020-02-27 11:30 | disposition home or self-care (01) ==
LOC: OR 16:18
PROVIDERS: Admitting Provider Orthopaedic Surgery; PCP Family Medicine; Referring Provider Orthopaedic Surgery; Visit Provider Orthopaedic Surgery
PROC: 0SRB0JZ Replacement of Left Hip Joint with Synthetic Substitute, Open Approach (ICD-10-PCS; CPT 27130; principal; 2020-02-25 13:15)
DX: S72.002K Fracture of unspecified part of neck of left femur, subsequent encounter for closed fracture with nonunion (principal); M16.12 Unilateral primary osteoarthritis, left hip; I73.9 Peripheral vascular disease, unspecified
CPT/HCPCS: 27130; 36415; 72170; 73502; 85014; 85018; 87070; 87075; 87176; 87205; 97110; 97116; 97161; 97530; C1776; G0378; C9290; J0171; J0690; J1100; J2250; J2405; J2704; J3010

== ENCOUNTER → 2021-02-14 11:25 | Outpatient (CLI) | payer OTHER, SELFPAY ==
[2020-02-25 18:07] VITALS: BMI 16.4
--- NOTE | 2021-02-14 11:26 | DI.MRI.S_ITS ---
PROCEDURE: MR LUMBAR SPINE WO CON INDICATIONS: Spinal stenosis, lumbar region TECHNIQUE: Noncontrast sagittal T1 spin echo and T2 fast echo, sagittal STIR, axial T1 and T2 fast spin echo through the lumbar spine. In cases with scoliosis, additional coronal T2 fast spin echo may be performed. COMPARISON: None. FINDINGS: Image quality: Motion is present on multiple sequences, limiting areas of fine detail evaluation. Alignment and Curvature: There is normal bony alignment. Bone Marrow: Marrow is of normal overall signal. Mild reactive endplate changes are present at L2-3, L3-4, L4-5 and L5-S1. No acute vertebral body compression fractures. Spinal Cord: Conus medullaris terminates at the L1 level. Visualized cord demonstrates normal signal and size. Paraspinous Soft Tissues: No paravertebral masses. Multiple foci of increased T2 signal are present within the liver as well as kidneys. Discs: Moderate to severe desiccation is present throughout the lumbar spine. L1-L2: Mild disc bulge with minimal appearance of canal narrowing. Mild left and minimal right foraminal narrowing with facet and ligamentum flavum hypertrophy. L2-L3: Mild disc bulge with mild spinal stenosis. Minimal bilateral foraminal narrowing with facet and ligamentum flavum hypertrophy. L3-L4: Mild disc bulge with severe spinal stenosis and compression. Severe left and moderate to severe right foraminal narrowing with facet and ligamentum flavum hypertrophy. L4-L5: Mild disc bulge with severe spinal stenosis and mild canal compression. Minimal to mild bilateral foraminal narrowing with facet and ligamentum flavum hypertrophy. L5-S1: Mild disc bulge with superimposed posterior central protrusion. Minimal spinal stenosis. No foraminal narrowing. IMPRESSION: 1. Multilevel disc bulges. 2. Multilevel spinal stenosis severe at L3-4 and L4-5 secondary to disc bulge with contributing effect of facet/ligamentum flavum arthropathy. 3. Multilevel foraminal narrowing severe at L3-4 secondary to facet arthropathy. 4. Multifocal foci of increased T2 within the kidneys and liver as above. While these could represent cysts, they are not seen in their entirety and motion is present. No priors are available for comparison. Further evaluation with CT or ultrasound is recommended. Dictated by: Rosalina Patrick M.D. on 02/16/2021 at 15:47 Approved by: Rosalina Patrick M.D. on 02/16/2021 at 16:10
== END ==
PROVIDERS: PCP Family Medicine; Referring Provider Internal Medicine; Visit Provider Internal Medicine
DX: M48.062 Spinal stenosis, lumbar region with neurogenic claudication (principal); M51.26 Other intervertebral disc displacement, lumbar region; M51.27 Other intervertebral disc displacement, lumbosacral region; M47.816 Spondylosis without myelopathy or radiculopathy, lumbar region
CPT/HCPCS: 72148